=== PATIENT | male | born 1985 | race African-American/Black ===

== ENCOUNTER 2022-05-07 12:49 | Emergency (ER) | payer MEDICARE, OTHER ==
[2022-05-07 12:53] VITALS: TEMP 98.2
[2022-05-07] MEDS ORDERED: ONDANSETRON 4 MG/2 ML VIAL IVP STA (13:15)
[2022-05-07] MEDS ORDERED: HYDROmorphone 0.5 MG/0.5 ML SYRINGE IVP STA ×2 (13:15→16:15)
--- NOTE | 2022-05-07 13:37 | ED ---
Back Pain HPI - General Chief Complaint: Back Pain/Injury Stated Complaint: sickle cell crisis Time Seen by Provider: 05/07/22 13:07 Source: patient, RN notes reviewed Mode of arrival: ambulatory Limitations: no limitations - History of Present Illness Initial Comments: This a 37-year-old male presents emergency Department chief complaint of sickle cell issues. Patient states the lesion was so crisis he states he's been having back pain. Patient states that this is typical for his issues. Patient states he only takes [id number] Tylenol. Patient states he was followed by hematology of [facility]. Patient denies any chest pain or shortness of breath denies any vomiting no dysuria patient denies any trauma no other complaints. - Related Data Home Medications Medication Instructions Recorded Confirmed Amoxicillin 500 mg PO DIRECTED 05/07/22 05/07/22 Ibuprofen [Motrin] 800 mg PO Q8H PRN 05/07/22 05/07/22 Previous Rx's Medication Instructions Recorded HYDROcodone/APAP 10-325MG [[place] 1 tab PO Q6HR PRN 3 Days #12 tab 05/07/22 10-325] HYDROcodone/APAP 10-325MG [[place] 1 tab PO Q6HR PRN 3 Days #12 tab 05/07/22 10-325] Allergies Allergy/AdvReac Type Severity Reaction Status Date / Time No Known Allergies Allergy Verified 05/07/22 16:32 Review of Systems ROS Statement: Those systems with pertinent positive or pertinent negative responses have been documented in the HPI. ROS Other: All systems not noted in ROS Statement are negative. Past Medical History Additional Past Medical History / Comment(s): sickle cell anemia History of Any Multi-Drug Resistant Organisms: None Reported Past Surgical History: Cholecystectomy Additional Past Surgical History / Comment(s): Mediport insertion x 3 Past Anesthesia/Blood Transfusion Reactions: No Reported Reaction Past Psychological History: No Psychological Hx Reported Smoking Status: Current every day smoker Past Alcohol Use History: None Reported Past Drug Use History: Marijuana General Exam Limitations: no limitations General appearance: alert, in no apparent distress Head exam: Present: atraumatic, normocephalic, normal inspection Neck exam: Present: normal inspection. Absent: tenderness, meningismus, lymphadenopathy Respiratory exam: Present: normal lung sounds bilaterally. Absent: respiratory distress, wheezes, rales, rhonchi, stridor Cardiovascular Exam: Present: regular rate, normal rhythm, normal heart sounds. Absent: systolic murmur, diastolic murmur, rubs, gallop, clicks GI/Abdominal exam: Present: soft, normal bowel sounds. Absent: distended, tenderness, guarding, rebound, rigid Extremities exam: Present: normal inspection, full ROM, normal capillary refill. Absent: tenderness, pedal edema, joint swelling, calf tenderness Back exam: Present: full ROM, tenderness, paraspinal tenderness Neurological exam: Present: alert, oriented X3 Skin exam: Present: warm, dry, intact, normal color. Absent: rash Course Vital Signs 05/07/22 05/07/22 12:51 15:35 Temperature 98.2 F Pulse Rate 86 60 Respiratory 16 20 Rate Blood Pressure 132/87 129/86 O2 Sat by Pulse 94 L 99 Oximetry Medical Decision Making - Medical Decision Making 37-year-old male presented return for her sickle cell crisis. Patient went of back pain which is usual symptoms. He does not feel short of breath he has no anterior chest pain. Patient just complains of diffuse back pain. Patient denies nausea vomiting no fevers or chills patient was given analgesics, fluid bolus. Patient follow-up with hematology. - Lab Data Result diagrams: 05/07/22 13:40 05/07/22 13:40 Lab Results 05/07/22 05/07/22 Range/Units 13:40 13:40 WBC 9.3 (3.8-10.6) k/uL RBC 3.12 L (4.30-5.90) m/uL Hgb 8.9 L (13.0-17.5) gm/dL Hct 25.7 L (39.0-53.0) % MCV 82.4 (80.0-100.0) fL MCH 28.4 (25.0-35.0) pg MCHC 34.5 (31.0-37.0) g/dL RDW 19.6 H (11.5-15.5) % Plt Count 341 (150-450) k/uL MPV 9.3 Hypochromasia Moderate Poikilocytosis Marked Anisocytosis Slight Microcytosis Slight Sodium 142 (137-145) mmol/L Potassium 4.8 (3.5-5.1) mmol/L Chloride 111 H (98-107) mmol/L Carbon Dioxide 21 L (22-30) mmol/L Anion Gap 10 mmol/L BUN 8 L (9-20) mg/dL Creatinine 1.10 (0.66-1.25) mg/dL Est GFR (CKD-EPI)AfAm >90 (>60 ml/min/1.73 sqM) Est GFR (CKD-EPI)NonAf 84 (>60 ml/min/1.73 sqM) Glucose 100 H (74-99) mg/dL Calcium 8.7 (8.4-10.2) mg/dL Total Bilirubin 1.1 (0.2-1.3) mg/dL AST 41 (17-59) U/L ALT 16 (4-49) U/L Alkaline Phosphatase 138 H (38-126) U/L Total Protein 7.5 (6.3-8.2) g/dL Albumin 4.3 (3.5-5.0) g/dL Disposition Clinical Impression: Sickle cell anemia Disposition: HOME SELF-CARE Condition: Stable Instructions (If sedation given, give patient instructions): Sickle Cell Crisis (ED) Additional Instructions: Please return to the Emergency Department if symptoms worsen or any other concerns. Prescriptions: HYDROcodone/APAP 10-325MG [[place] 10-325] 1 tab PO Q6HR PRN 3 Days #12 tab PRN Reason: Pain HYDROcodone/APAP 10-325MG [[place] 10-325] 1 tab PO Q6HR PRN 3 Days #12 tab PRN Reason: pain Is patient prescribed a controlled substance at d/c from ED?: Yes When asked, does pt state using other controlled substances?: No If prescribed controlled substance>3 days was MAPS reviewed?: Prescribed <3 Days If opioid is for acute pain is fill amount 7 days or less?: Yes If Rx opioid, was Start Talking consent form obtained?: Yes Referrals: None,Stated [Primary Care Provider] - 1-2 days [place] Howell MD [STAFF PHYSICIAN] - 1-2 days Time of Disposition: 16:41
[2022-05-07 14:30] LABS: ALT 16 U/L (4-49); AST 41 U/L (17-59); African American GFR (CKD) >90 (>60 ml/min/1.73 sqM); Albumin 4.3 g/dL (3.5-5.0); Alkaline Phosphatase 138 U/L (38-126); Anion Gap 10 mmol/L; Blood Urea Nitrogen 8 mg/dL (9-20); Calcium 8.7 mg/dL (8.4-10.2); Carbon Dioxide 21 mmol/L (22-30); Chloride 111 mmol/L (98-107); Glucose 100 mg/dL (74-99); Non-African American GFR(CKD) 84 (>60 ml/min/1.73 sqM); Potassium 4.8 mmol/L (3.5-5.1); Sodium 142 mmol/L (137-145); Total Bilirubin 1.1 mg/dL (0.2-1.3); Total Protein 7.5 g/dL (6.3-8.2)
--- NOTE | 2022-05-07 14:58 | XR ---
EXAMINATION TYPE: XR chest 2V DATE OF EXAM: 05/07/2022 2:40 PM COMPARISON: Chest radiographs from 08/27/2011. TECHNIQUE: XR chest 2V Frontal and lateral views of the chest. CLINICAL INDICATION:Male, 37 years old with history of pain; FINDINGS: Lungs/Pleura: There is no evidence of pleural effusion, focal consolidation, or pneumothorax. Promin ent interstitial lung markings. Heart/mediastinum: Cardiomediastinal silhouette is unremarkable. Musculoskeletal: No acute osseous pathology. Heterogenous sclerotic appearance of both humeral heads. H shaped vertebral bodies consistent with known sickle cell disease. Other findings: Postsurgical changes of the left anterior chest with surgical clips and coiling. Vasc ular stent overlies the left upper chest. Right chest wall Mediport catheter terminates at the superi or cavoatrial junction. IMPRESSION: 1. Prominent interstitial lung markings. No focal consolidation. This can be seen with interstitial edema versus atypical pneumonia. 2. Sclerotic appearance of both humeral heads likely related to osteonecrosis in a patient with know n sickle cell.
[2022-05-07] MEDS ORDERED: HYDROmorphone 1 MG/ML 1 ML SYRINGE IVP STA (15:27)
[2022-05-07 15:49] LABS: Anisocytosis Slight; HCT 25.7 % (39.0-53.0); HGB 8.9 gm/dL (13.0-17.5); Hypochromasia Moderate; MCH 28.4 pg (25.0-35.0); MCHC 34.5 g/dL (31.0-37.0); MCV 82.4 fL (80.0-100.0); Mean Platelet Volume 9.3; Microcytosis Slight; Platelet Count 341 k/uL (150-450); Poikilocytosis Marked; RBC 3.12 m/uL (4.30-5.90); RDW 19.6 % (11.5-15.5)
[2022-05-07 15:50] LABS: Reticulocyte % 10.4 % (0.5-2.0)
[2022-05-07] MEDS ORDERED: SODIUM CHLORIDE 0.9% 1,000 ML IV ONE (16:15)
[2022-05-07 16:48] LABS: Anisocytosis (M) Present; Band Neutrophils % 2 %; Eosinophils # (M) 0.08 k/uL (0-0.7); Monocytes # (M) 0.68 k/uL (0-1.0); Neutrophils % (M) 58 %; Nucleated Red Blood Cells 24 /100 WBC (0-0); Total Cells Counted 200; WBC 7.5 k/uL (3.8-10.6)
[2022-05-07 16:49] LABS: Hypochromasia (M) Present; Ovalocytes Present; Poikilocytosis (M) Present; Polychromasia Present; Target Cells Present; Tear Drop Cells Present
[2022-05-07 16:51] LABS: Sickle Cells Present
[2022-05-07 19:21] VITALS: BP 138/90; PULSE 63; RESP 16
== END 2022-05-07 17:50 | disposition home or self-care (01) ==
LOC: EC 12:49
DX: D57.1 Sickle-cell disease without crisis (principal); F17.200 Nicotine dependence, unspecified, uncomplicated; F19.20 Other psychoactive substance dependence, uncomplicated
CPT/HCPCS: 99283; 96374; 96375 ×4; 96361; 36415; 80053; 85025; 85045; 71046; J2405; J1170 ×2; J1642

== ENCOUNTER 2024-04-13 08:15 | Inpatient (IN) | payer MEDICARE, OTHER ==
[2024-04-13] MEDS: HYDROmorphone 1 MG/ML 1 ML SYRINGE IVP STA ×2 (09:23→10:09)
[2024-04-13 09:31] LABS: Anisocytosis Slight; HCT 28.8 % (39.0-53.0); HGB 9.4 gm/dL (13.0-17.5); Hypochromasia Slight; MCH 28.5 pg (25.0-35.0); MCHC 32.7 g/dL (31.0-37.0); MCV 87.1 fL (80.0-100.0); Mean Platelet Volume 8.1; Platelet Count 349 k/uL (150-450); Poikilocytosis Marked; RBC 3.31 m/uL (4.30-5.90); RDW 19.3 % (11.5-15.5); Reticulocyte % 10.5 % (0.5-2.0)
[2024-04-13 09:44] LABS: ALT 23 U/L (4-49); AST 40 U/L (17-59); African American GFR (CKD) >90 (>60 ml/min/1.73 sqM); Alkaline Phosphatase 146 U/L (38-126); Anion Gap 6 mmol/L; Blood Urea Nitrogen 12 mg/dL (9-20); Calcium 8.6 mg/dL (8.4-10.2); Carbon Dioxide 24 mmol/L (22-30); Chloride 112 mmol/L (98-107); Glucose 113 mg/dL (74-99); Non-African American GFR(CKD) 81 (>60 ml/min/1.73 sqM); Potassium 4.1 mmol/L (3.5-5.1); Sodium 142 mmol/L (137-145); Total Bilirubin 1.4 mg/dL (0.2-1.3)
--- NOTE | 2024-04-13 09:56 | XR ---
EXAMINATION TYPE: XR chest 2V DATE OF EXAM: 04/13/2024 COMPARISON: NONE HISTORY: Chest pain TECHNIQUE: Frontal and lateral views of the chest are obtained. FINDINGS: There is no focal air space opacity. Postoperative changes left upper lobe. MediPort catheter in plac e. No evidence for pneumothorax. No pleural effusion. The cardiac silhouette size is within normal limits. The osseous structures are grossly intact. Proximal humeral bone infarcts and/or osteonecrosis noted. IMPRESSION: 1. No acute cardiopulmonary process. [facility], , 04/13/2024 9:54 AM
--- NOTE | 2024-04-13 10:02 | ED ---
General Adult HPI - General Chief complaint: Recheck/Abnormal Lab/Rx Stated complaint: Sickle cell issue Time Seen by Provider: 04/13/24 08:36 Source: patient, RN notes reviewed Mode of arrival: ambulatory Limitations: no limitations - History of Present Illness Initial comments: 39-year-old male presents emergency department chief complaint of chest and leg pain. Patient states he has a history of sickle cell. Patient states he has sickle cell crisis. Patient states has not had any issues in a few years he is usually hospitalized for this reason he does not see a current hematology. Patient states pain is uncontrolled he does have an noted chest port he states he has shortness of breath related to his pain denies any fevers no headache or dizziness no syncopal episodes - Related Data Home Medications Medication Instructions Recorded Confirmed No Known Home Medications 04/13/24 04/13/24 Allergies Allergy/AdvReac Type Severity Reaction Status Date / Time No Known Allergies Allergy Verified 04/13/24 10:24 Review of Systems ROS Statement: Those systems with pertinent positive or pertinent negative responses have been documented in the HPI. ROS Other: All systems not noted in ROS Statement are negative. Past Medical History Additional Past Medical History / Comment(s): sickle cell anemia History of Any Multi-Drug Resistant Organisms: None Reported Past Surgical History: Cholecystectomy Additional Past Surgical History / Comment(s): Mediport insertion x 3 Past Anesthesia/Blood Transfusion Reactions: No Reported Reaction Past Psychological History: No Psychological Hx Reported Smoking Status: Current every day smoker Past Alcohol Use History: None Reported Past Drug Use History: Marijuana General Exam Limitations: no limitations General appearance: alert, in no apparent distress Head exam: Present: atraumatic, normocephalic, normal inspection Eye exam: Present: normal appearance, PERRL, EOMI. Absent: scleral icterus, conjunctival injection, periorbital swelling Neck exam: Present: normal inspection, full ROM. Absent: tenderness, meningismus, lymphadenopathy Respiratory exam: Present: normal lung sounds bilaterally. Absent: respiratory distress, wheezes, rales, rhonchi, stridor Cardiovascular Exam: Present: regular rate, normal rhythm, normal heart sounds. Absent: systolic murmur, diastolic murmur, rubs, gallop, clicks GI/Abdominal exam: Present: soft, normal bowel sounds. Absent: distended, tenderness, guarding, rebound, rigid Course Vital Signs 04/13/24 04/13/24 08:16 10:00 Temperature 98 F Pulse Rate 74 51 L Respiratory 18 18 Rate Blood Pressure 155/78 131/79 O2 Sat by Pulse 98 96 Oximetry EKG Findings - EKG Comments: EKG Findings:: EKG performed at 9: 32 sinus bradycardia rate of 55 RI 137 QRS 90 QT/QTc 433/421 - EKG Results: EKG: interpreted by GREYSON Medical Decision Making - Medical Decision Making Was pt. sent in by a medical professional or institution ([facility] Sandoval, [facility], urgent care, hospital, or [facility]...) When possible be specific @ -No Did you speak to anyone other than the patient for history (EMS, parent, family, police, friend...)? What history was obtained from this source @ -No Did you review nursing and triage notes (agree or disagree)? Why? @ -I reviewed and agree with nursing and triage notes Were old charts reviewed (outside hosp., previous admission, EMS record, old EKG, old radiological studies, urgent care reports/EKG's, [facility] records)? Report findings @ -No old charts were reviewed Differential Diagnosis (chest pain, altered mental status, abdominal pain women, abdominal pain men, vaginal bleeding, weakness, fever, dyspnea, syncope, headache, dizziness, GI bleed, back pain, seizure, CVA, palpatations, mental health, musculoskeletal)? @ -Differential Chest Pain: Stable Angina, Unstable Angina, STEMI, NSTEMI Aortic Dissection, Pneumothorax, Musculoskeletal, Esophageal Spasm GERD, Cholecystitis, Pancreatitis, Zoster, this is not meant to be an all-inclusive list. EKG interpreted by me (3pts min.). @ -As above X-rays interpreted by me (1pt min.). @ -Chest x-ray shows no acute cardiopulmonary process CT interpreted by me (1pt min.). @ -None done U/S interpreted by me (1pt. min.). @ -None done What testing was considered but not performed or refused? (CT, X-rays, U/S, labs)? Why? @ -None What meds were considered but not given or refused? Why? @ -None Did you discuss the management of the patient with other professionals (professionals i.e. [facility] Sandoval, [facility] [facility], lab, RT, psych nurse, social worker health services, picker and packer, teacher, aircraft electronics technical officer, behavioral health case manager)? Give summary @ -Dr. Tamayo for admission Was smoking cessation discussed for >3mins.? @ -No Was critical care preformed (if so, how long)? @ -No Were there social determinants of health that impacted care today? How? (Homelessness, low income, unemployed, alcoholism, drug addiction, transportation, low edu. Level, literacy, decrease access to med. care, halfway, rehab)? @ -No Was there de-escalation of care discussed even if they declined (Discuss DNR or withdrawal of care, Hospice)? DNR status @ -No What co-morbidities impacted this encounter? (DM, HTN, Smoking, COPD, CAD, Cancer, CVA, ARF, Chemo, Hep., AIDS, mental health diagnosis, sleep apnea, morbid obesity)? @ -Sickle cell Was patient admitted / discharged? Hospital course, mention meds given and route, prescriptions, significant lab abnormalities, going to OR and other pertinent info. @ -Admitted patient presented for sickle cell crisis, reticulocyte count is 10.5. Patient is having persistent pain. Patient x-ray is clear was started on IV fluids, analgesics Undiagnosed new problem with uncertain prognosis? @ -No Drug Therapy requiring intensive monitoring for toxicity (Heparin, Nitro, Insulin, Cardizem)? @ -No Were any procedures done? @ -No Diagnosis/symptom? @ -Sickle cell crisis Acute, or Chronic, or Acute on Chronic? @ -Acute Uncomplicated (without systemic symptoms) or Complicated (systemic symptoms)? @ -Complicated Side effects of treatment? @ -No Exacerbation, Progression, or Severe Exacerbation? @ -No Poses a threat to life or bodily function? How? (Chest pain, [place], [place], pneumonia, PE, COPD, DKA, ARF, appy, cholecystitis, CVA, Diverticulitis, Homicidal, Suicidal, threat to staff... and all critical care pts) @ -No - Lab Data Result diagrams: 04/13/24 09:19 04/13/24 09:19 Lab Results 04/13/24 04/13/24 Range/Units 09:19 09:19 WBC 11.9 H (3.8-10.6) k/uL RBC 3.31 L (4.30-5.90) m/uL Hgb 9.4 L (13.0-17.5) gm/dL Hct 28.8 L (39.0-53.0) % MCV 87.1 (80.0-100.0) fL MCH 28.5 (25.0-35.0) pg MCHC 32.7 (31.0-37.0) g/dL RDW 19.3 H (11.5-15.5) % Plt Count 349 (150-450) k/uL MPV 8.1 Neutrophils % (Manual) 67 % Band Neuts % (Manual) 1 % Lymphocytes % (Manual) 22 % Monocytes % (Manual) 8 % Eosinophils % (Manual) 2 % Basophils % (Manual) 1 % Metamyelocytes % 1 % Neutrophils # (Manual) 8.00 H (1.3-7.7) k/uL Lymphocytes # (Manual) 2.62 (1.0-4.8) k/uL Monocytes # (Manual) 0.95 (0-1.0) k/uL Eosinophils # (Manual) 0.24 (0-0.7) k/uL Basophils # (Manual) 0.12 (0-0.2) k/uL Metamyelocytes # (Man) 0.12 H (0) k/uL Nucleated RBCs 3 H (0-0) /100 WBC Manual Slide Review Performed Polychromasia Present Hypochromasia Slight Poikilocytosis Marked Anisocytosis Slight Sickle Cells Present Target Cells Present [place] Bodies Present Retic Count 10.5 H (0.5-2.0) % Sodium 142 (137-145) mmol/L Potassium 4.1 (3.5-5.1) mmol/L Chloride 112 H (98-107) mmol/L Carbon Dioxide 24 (22-30) mmol/L Anion Gap 6 mmol/L BUN 12 (9-20) mg/dL Creatinine 1.13 (0.66-1.25) mg/dL Est GFR (CKD-EPI)AfAm >90 (>60 ml/min/1.73 sqM) Est GFR (CKD-EPI)NonAf 81 (>60 ml/min/1.73 sqM) Glucose 113 H (74-99) mg/dL Calcium 8.6 (8.4-10.2) mg/dL Total Bilirubin 1.4 H (0.2-1.3) mg/dL AST 40 (17-59) U/L ALT 23 (4-49) U/L Alkaline Phosphatase 146 H (38-126) U/L Total Protein 7.0 (6.3-8.2) g/dL Albumin 4.0 (3.5-5.0) g/dL Disposition Clinical Impression: Sickle cell crisis Disposition: ADMITTED IP TO THIS HOSP Condition: Fair Referrals: None,Stated [Primary Care Provider] - 1-2 days Time of Disposition: 11:05
[2024-04-13 10:05] LABS: Band Neutrophils % 1 %; Basophils # (M) 0.12 k/uL (0-0.2); Eosinophils # (M) 0.24 k/uL (0-0.7); Lymphocytes # (M) 2.62 k/uL (1.0-4.8); Metamyelocytes # (M) 0.12 k/uL (0); Metamyelocytes % 1 %; Monocytes # (M) 0.95 k/uL (0-1.0); Neutrophils % (M) 67 %; Nucleated Red Blood Cells 3 /100 WBC (0-0); Total Cells Counted 200; WBC 11.9 k/uL (3.8-10.6)
[2024-04-13 10:06] LABS: Polychromasia Present; Sickle Cells Present; Target Cells Present
[2024-04-13 10:07] LABS: Howell-Jolly Bodies Present
[2024-04-13] MEDS: SODIUM CHLORIDE 0.9% 500 ML 500 ML IV ONE (10:16)
[2024-04-13] MEDS ORDERED: NALOXONE 0.4 MG/ML 1 ML VIAL IV PRN (11:05)
[2024-04-13] MEDS ORDERED: ONDANSETRON 4 MG/2 ML VIAL IVP PRN (11:05)
[2024-04-13] MEDS: SODIUM CHLORIDE 0.9% 1,000 ML IV SCH (11:25)
[2024-04-13] MEDS: HYDROmorphone 1 MG/ML 1 ML SYRINGE IVP PRN (11:25)
--- NOTE | 2024-04-13 13:47 | P.HPIM ---
History of Present Illness H&P Date: 04/13/24 History of present illness; Shane Thomas is a 39-year-old male with sickle cell disease, who presents with pain crisis. Patient symptoms began this morning, with pain is constant in nature and located primarily in diffusely through back, shoulders, and thighs. He states he has pain throughout his body. He reports having a cold 1 week ago, with no other known triggers. He has had multiple pain crisis in the past. He has urinated since arriving to ER today. Currently he denies fever, chills, chest pain, shortness of breath, cough, nausea, vomiting, abdominal pain. Initial lab work done in the ER showed WBC 11.9, hemoglobin 9.4, MCV 87, slide with sickle cells, target cells, [place] bodies, reticulocyte count 10.5, sodium 142, potassium 4.1, chloride 112, BUN 12, creatinine 13, glucose 113, bilirubin 1.4, ALP 146, lactate dehydrogenase 725, respiratory viral panel negative EKG done in the ER independently interpreted showed heart rate of 55, no ST segment elevation or depression seen, no T-wave inversions seen. Chest x-ray done independently interpreted in the ER showed no acute cardiopulmonary process. Patient admitted to internal medicine service for treatment of sickle cell pain crisis. REVIEW OF SYSTEMS: All Systems reviewed, pertinent positives and negatives noted in HPI. All other symptoms are negative. The rest of the 14-point review of systems is negative. PHYSICAL EXAMINATION: GENERAL: The patient is alert and oriented x3, moderate acute distress. Well developed, well nourished. HEENT: Pupils are round and equally reacting to light. EOMI. No scleral icterus. No conjunctival pallor. Normocephalic, atraumatic. No pharyngeal erythema. No thyromegaly. CARDIOVASCULAR: S1 and S2 present. No murmurs, rubs, or gallops. PULMONARY: Chest is clear to auscultation, no wheezing or crackles. ABDOMEN: Soft, nontender, nondistended, normoactive bowel sounds. No palpable organomegaly. MUSCULOSKELETAL: No apparent joint swelling and deformities. EXTREMITIES: No apparent cyanosis, clubbing, or pedal edema. NEUROLOGICAL: Gross neurological examination did not reveal any focal deficits. SKIN: No apparent rashes. Labs reviewed Imaging reviewed Assessment and plan Shane Thomas is a 39-year-old male with sickle cell disease, who presents with pain crisis. # Acute vaso-occlusive sickle cell crisis Given 500 mL NS bolus in ER Continue IV normal saline 100 cc/h Continue pain management with IV Dilaudid 0.5 mg every 3 hours as needed, 1 mg IV every 3 hours as needed, oral [place] 5 every 4 hours as needed, monitor for sedation Order haptoglobin, LDH Ordered type and screen Monitor CBC #Leukocytosis May be secondary to stress response versus underlying infection Initial WBC 11.9 Order blood culture Monitor CBC as above #Acute urinary retention Bladder scan revealed 600 mL Plan to straight cath Continue IV fluids as above F: IV Normal saline 100cc/hr E: Replete as needed N: Regular diet E: None DVT ppx: Subq Lovenox Code status: Full code Anticipated discharge place: Pending clinical course Anticipated discharge time: Pending clinical course Monitor vital signs, CBC, CMP Continue telemetry monitoring Continue with symptomatic treatment. Resume home medication. GI prophylaxis as needed. Further recommendations as per clinical course of the patient Dictation was produced using [employer] dictation software. Please excuse any grammatical, word or spelling errors. The patient is admitted with an anticipated greater than 2 midnight stay as inpatient status for evaluation of sickle cell crisis. A total of 55 minutes was spent on the care of this complex patient more than 50% of the time was spent in counseling and care coordination. I have seen and evaluated the patient today. Discussed with the resident and agree with the residents finding and plan as documented in the resident's note. Changes highlighted in blue font. Past Medical History Additional Past Medical History / Comment(s): sickle cell anemia History of Any Multi-Drug Resistant Organisms: None Reported Past Surgical History: Cholecystectomy Additional Past Surgical History / Comment(s): Mediport insertion x 3 Past Anesthesia/Blood Transfusion Reactions: No Reported Reaction Past Psychological History: No Psychological Hx Reported Smoking Status: Current every day smoker Past Alcohol Use History: None Reported Past Drug Use History: Marijuana Medications and Allergies Home Medications Medication Instructions Recorded Confirmed Type No Known Home Medications 04/13/24 04/13/24 History Allergies Allergy/AdvReac Type Severity Reaction Status Date / Time No Known Allergies Allergy Verified 04/13/24 10:24 Physical Exam Vitals: Vital Signs Temp Pulse Resp BP Pulse Ox 04/13/24 11:46 59 L 18 132/75 97 04/13/24 10:00 51 L 18 131/79 96 04/13/24 08:16 98 F 74 18 155/78 98 Intake and Output 04/12/24 04/13/24 04/13/24 22:59 06:59 14:59 Other: Weight 70.307 kg Results CBC & Chem 7: 04/13/24 09:19 04/13/24 09:19 Labs: Abnormal Lab Results - Last 24 Hours (Table) 04/13/24 04/13/24 04/13/24 Range/Units 09:19 09:19 12:04 WBC 11.9 H (3.8-10.6) k/uL RBC 3.31 L (4.30-5.90) m/uL Hgb 9.4 L (13.0-17.5) gm/dL Hct 28.8 L (39.0-53.0) % RDW 19.3 H (11.5-15.5) % Neutrophils # (Manual) 8.00 H (1.3-7.7) k/uL Metamyelocytes # (Man) 0.12 H (0) k/uL Nucleated RBCs 3 H (0-0) /100 WBC Retic Count 10.5 H (0.5-2.0) % Chloride 112 H (98-107) mmol/L Glucose 113 H (74-99) mg/dL Total Bilirubin 1.4 H (0.2-1.3) mg/dL Alkaline Phosphatase 146 H (38-126) U/L Lactate Dehydrogenase 725 H (120-246) U/L
[2024-04-13] MEDS: HYDROmorphone 0.5 MG/0.5 ML SYRINGE IVP PRN (14:00)
[2024-04-13] MEDS: HYDROcodone/APAP 5-325MG 1 EACH TAB PO PRN (15:32)
[2024-04-14 08:27] LABS: Anisocytosis Slight; Basophils # (A) 0.1 k/uL (0-0.2); Basophils % (A) 1 %; Eosinophils # (A) 0.1 k/uL (0-0.7); Eosinophils % (A) 1 %; HCT 23.5 % (39.0-53.0); Hypochromasia Moderate; Lymphocytes # (A) 2.7 k/uL (1.0-4.8); Lymphocytes % (A) 17 %; MCH 28.6 pg (25.0-35.0); MCHC 32.6 g/dL (31.0-37.0); MCV 87.5 fL (80.0-100.0); Mean Platelet Volume 9.5; Monocytes # (A) 0.7 k/uL (0-1.0); Monocytes % (A) 5 %; Neutrophils # (A) 12.1 k/uL (1.3-7.7); Platelet Count 197 k/uL (150-450); Poikilocytosis Marked; RBC 2.68 m/uL (4.30-5.90); RDW 19.9 % (11.5-15.5); Reticulocyte % 10.1 % (0.5-2.0)
[2024-04-14 08:51] LABS: HGB 7.7 gm/dL (13.0-17.5)
[2024-04-14 09:01] LABS: Band Neutrophils % 1 %; Lymphocytes # (M) 2.09 k/uL (1.0-4.8); Metamyelocytes # (M) 0.12 k/uL (0); Metamyelocytes % 1 %; Monocytes # (M) 0.98 k/uL (0-1.0); Myelocytes # (M) 0.12 k/uL (0); Myelocytes % 1 %; Neutrophils % (M) 74 %; Nucleated Red Blood Cells 30 /100 WBC (0-0); Polychromasia Present; Sickle Cells Present; Total Cells Counted 200; WBC 12.3 k/uL (3.8-10.6)
[2024-04-14 09:02] LABS: Anisocytosis (M) Present; Target Cells Present
[2024-04-14 09:04] LABS: Howell-Jolly Bodies Present
[2024-04-14] MEDS: SODIUM CHLORIDE 0.9% 500 ML 500 ML IV ONE (11:06)
[2024-04-14] MEDS ORDERED: NALOXONE 0.4 MG/ML 1 ML VIAL IV PRN (11:20)
[2024-04-14 11:34] LABS: Blood Urea Nitrogen 13.8 mg/dL (9.0-27.0); Carbon Dioxide 20.6 mmol/L (21.6-31.8); Chloride 108 mmol/L (96-109); Glucose 117 mg/dL (70-110); Potassium 4.6 mmol/L (3.5-5.5); Sodium 141 mmol/L (135-145)
[2024-04-14 11:35] LABS: ALT 75 U/L (10-49); AST 181 U/L (14-35); Albumin 4.1 g/dL (3.8-4.9); Albumin/Globulin Ratio 1.52 Ratio (1.60-3.17); Alkaline Phosphatase 235 U/L (41-126); Calcium 8.4 mg/dL (8.7-10.3); Globulin 2.7 g/dL (1.6-3.3); Total Bilirubin 1.3 mg/dL (0.3-1.2); Total Protein 6.8 g/dL (6.2-8.2)
[2024-04-14 11:52] LABS: LDH 1289 U/L (120-246)
[2024-04-14] MEDS: SENNOSIDES 8.6 MG TAB PO SCH (11:57)
[2024-04-14] MEDS: HYDROmorphone PCA 10 MG/50 ML BAG IV PRN (13:26)
[2024-04-14 14:32] LABS: Appearance,Urine Clear (Clear); Bilirubin,Urine Negative (Negative); Blood,Urine Moderate (Negative); Color,Urine Colorless; Glucose,Urine (UA) Negative (Negative); Ketones,Urine Negative (Negative); Leukocyte Esterase,Urine Negative (Negative); Mucus,Urine Rare /hpf; Nitrite,Urine Negative (Negative); PH, Urine 5.5 (5.0-8.0); Protein,Urine Trace (Negative); RBC,Urine <1 /hpf (0-5); Specific Gravity,Urine 1.012 (1.001-1.035); Urobilinogen,Urine <2.0 mg/dL (<2.0); WBC,Urine <1 /hpf (0-5)
--- NOTE | 2024-04-14 15:39 | P.PN ---
Subjective Progress Note Date: 04/14/24 History of present illness; Shane Thomas is a 39-year-old male with sickle cell disease, who presents with pain crisis. Patient symptoms began this morning, with pain is constant in nature and located primarily in diffusely through back, shoulders, and thighs. He states he has pain throughout his body. He reports having a cold 1 week ago, with no other known triggers. He has had multiple pain crisis in the past. He has urinated since arriving to ER today. Currently he denies fever, chills, chest pain, shortness of breath, cough, nausea, vomiting, abdominal pain. Initial lab work done in the ER showed WBC 11.9, hemoglobin 9.4, MCV 87, slide with sickle cells, target cells, [place] bodies, reticulocyte count 10.5, sodium 142, potassium 4.1, chloride 112, BUN 12, creatinine 13, glucose 113, bilirubin 1.4, ALP 146, lactate dehydrogenase 725, respiratory viral panel negative. EKG done in the ER independently interpreted showed heart rate of 55, no ST segment elevation or depression seen, no T-wave inversions seen. Chest x-ray done independently interpreted in the ER showed no acute cardiopulmonary process. Progress note 4patient seen and examined at bedside. Patient continues to have throughout his body, not worse in any one area. Patient continues to get combination of Dilaudid and [place]. Patient with no known urine output today. No further complaints. REVIEW OF SYSTEMS: All Systems reviewed, pertinent positives and negatives noted in HPI. All other symptoms are negative. The rest of the 14-point review of systems is negative. PHYSICAL EXAMINATION: Vitals reviewed GENERAL: The patient is alert and oriented x3, moderate acute distress. Well developed, well nourished. HEENT: Pupils are round and equally reacting to light. EOMI. No scleral icterus. No conjunctival pallor. Normocephalic, atraumatic. No pharyngeal erythema. No thyromegaly. CARDIOVASCULAR: S1 and S2 present. No murmurs, rubs, or gallops. PULMONARY: Chest is clear to auscultation, no wheezing or crackles. ABDOMEN: Soft, nontender, nondistended, normoactive bowel sounds. No palpable organomegaly. MUSCULOSKELETAL: No apparent joint swelling and deformities. EXTREMITIES: No apparent cyanosis, clubbing, or pedal edema. NEUROLOGICAL: Gross neurological examination did not reveal any focal deficits. SKIN: No apparent rashes. Labs reviewed today WBC 12.3, hemoglobin 7.7, platelets 197, reticulocyte count 10.1, sodium 141, potassium 4.6, chloride 108, BUN 13.8, creatinine 1.0, glucose 117, total bili 1.3, AST 181, ALT 75, ALP 235, lactate dehydrogenase 1289, UA with findings of trace protein and moderate blood. Imaging reviewednone today Assessment and plan Shane Thomas is a 39-year-old male with sickle cell disease, who presents with pain crisis. 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 Began senna 8.6 mg twice daily Haptoglobin < 10.0, LDH 1289 Completed type and screen Blood transfusion ordered Monitor CBC -Order ferritin level tomorrow morning, if very elevated will consider hematology consult for exchange transfusion #Leukocytosis May be secondary to stress response versus underlying infection Initial WBC 11.9 => 12.3 Awaiting blood culture Monitor CBC as above #Acute urinary retention Bladder scan revealed 600 mL Patient later able to initiate urination UA no apparent UTI Continue to monitor Continue IV fluids as above F: IV Normal saline 100cc/hr E: Replete as needed N: Regular diet E: None DVT ppx: Subq Lovenox Code status: Full code Anticipated discharge place: Pending clinical course Anticipated discharge time: Pending clinical course Monitor vital signs, CBC, CMP Continue telemetry monitoring Continue with symptomatic treatment. Resume home medication. GI prophylaxis as needed. Further recommendations as per clinical course of the patient Dictation was produced using [employer] dictation software. Please excuse any grammatical, word or spelling errors. I have seen and evaluated the patient today. Discussed with the resident and agree with the residents finding and plan as documented in the resident's note. Changes highlighted in blue font. Objective - Vital Signs Vital signs: Vital Signs Temp 98.3 F 04/14/24 13:29 Pulse 91 04/14/24 13:29 Resp 16 04/14/24 13:29 BP 123/68 04/14/24 13:29 Pulse Ox 97 04/14/24 13:29 FiO2 Intake & Output 04/13/24 04/14/24 04/14/24 18:59 06:59 18:59 Intake Total 480 118 Output Total 325 Balance 155 118 Weight 70.307 kg Intake: Oral 480 118 Output: Urine 325 Other: Voiding Method Urinal # Voids 2 300 - Labs CBC & Chem 7: 04/14/24 07:00 04/14/24 07:00 Labs: Abnormal Lab Results - Last 24 Hours (Table) 04/13/24 04/14/24 04/14/24 Range/Units 12:04 07:00 07:00 WBC 12.3 H (3.8-10.6) k/uL RBC 2.68 L (4.30-5.90) m/uL Hgb 7.7 L D (13.0-17.5) gm/dL Hct 23.5 L (39.0-53.0) % RDW 19.9 H (11.5-15.5) % Neutrophils # 12.1 H (1.3-7.7) k/uL Neutrophils # (Manual) 9.20 H (1.3-7.7) k/uL Metamyelocytes # (Man) 0.12 H (0) k/uL Myelocytes # (Manual) 0.12 H (0) k/uL Nucleated RBCs 30 H (0-0) /100 WBC Retic Count 10.1 H (0.5-2.0) % Haptoglobin <10.0 L (31.2-198.0) mg/dL Carbon Dioxide 20.6 L (21.6-31.8) mmol/L Anion Gap 12.40 H (4.00-12.00) mmol/L Glucose 117 H (70-110) mg/dL Calcium 8.4 L (8.7-10.3) mg/dL Total Bilirubin 1.3 H (0.3-1.2) mg/dL AST 181 H (14-35) U/L ALT 75 H (10-49) U/L Alkaline Phosphatase 235 H (41-126) U/L Lactate Dehydrogenase 1289 H (120-246) U/L Albumin/Globulin Ratio 1.52 L (1.60-3.17) Ratio Urine Protein (Negative) Urine Blood (Negative) Urine Mucus (None) /hpf 04/14/24 Range/Units 10:14 WBC (3.8-10.6) k/uL RBC (4.30-5.90) m/uL Hgb (13.0-17.5) gm/dL Hct (39.0-53.0) % RDW (11.5-15.5) % Neutrophils # (1.3-7.7) k/uL Neutrophils # (Manual) (1.3-7.7) k/uL Metamyelocytes # (Man) (0) k/uL Myelocytes # (Manual) (0) k/uL Nucleated RBCs (0-0) /100 WBC Retic Count (0.5-2.0) % Haptoglobin (31.2-198.0) mg/dL Carbon Dioxide (21.6-31.8) mmol/L Anion Gap (4.00-12.00) mmol/L Glucose (70-110) mg/dL Calcium (8.7-10.3) mg/dL Total Bilirubin (0.3-1.2) mg/dL AST (14-35) U/L ALT (10-49) U/L Alkaline Phosphatase (41-126) U/L Lactate Dehydrogenase (120-246) U/L Albumin/Globulin Ratio (1.60-3.17) Ratio Urine Protein Trace H (Negative) Urine Blood Moderate H (Negative) Urine Mucus Rare H (None) /hpf
--- NOTE | 2024-04-14 20:49 | US ---
EXAMINATION TYPE: US abdomen complete DATE OF EXAM: 04/14/2024 COMPARISON: NONE CLINICAL INDICATION: Male, 39 years old with history of splenomegaly, SC crisis; sickle cell crisis TECHNIQUE: Grayscale and color Doppler imaging of the abdomen was performed. FINDINGS: EXAM MEASUREMENTS: Liver Length: 17.8 cm Gallbladder Wall: unable to evaluate CBD: unable to evaluate cm Spleen: obscured by bowel, unable to evaluate Right Kidney: 10.7x4.2 cm Left Kidney: 11.3x5.4 cm SECURITIES ATTORNEY NOTES: Pancreas: Tail obscured by overlying bowel gas Liver: wnl as best visualized, enlarged Gallbladder: unable to evaluate Evidence for sonographic Cazares's sign: No CBD: unable to evaluate Spleen: unable to evaluate Right Kidney: wnl as best visualized Left Kidney: wnl as best visualized Upper IVC: wnl Abd Aorta: unable to evaluate patient in active sickle cell crisis, unable to tolerate exam, hold deep withheld inspiration, or economic development coordinator perate with proper positioning for exam making the ultrasound largely non-diagnostic The liver is homogenous. The intrahepatic portion of the IVC is within normal limits. The visualized portions of the pancreas are homogenous. IMPRESSION: 1. Abdomen ultrasound exam is essentially nondiagnostic. 2. Hepatomegaly [facility], Workstation: [facility], 04/14/2024 8:47 PM
[2024-04-14] MEDS: ACETAMINOPHEN TAB 325 MG TAB PO PRN (21:11)
[2024-04-14 23:34] LABS: Glucose,Whole Blood 93 mg/dL (70-110)
[2024-04-14] MEDS: DEXTROSE 5%-0.45% NACL 1,000 ML IV SCH (23:53)
[2024-04-15 00:37] LABS: Lactic Acid, Venous 3.1 mmol/L (0.7-2.0)
[2024-04-15] MEDS: HYDROmorphone 1 MG/ML 1 ML SYRINGE IVP PRN (01:56)
--- NOTE | 2024-04-15 02:35 | P.PN ---
Progress Note - Text Progress Note Date: 04/15/24 notified by RN to evaluate patient with AMS patient reports poor control of his pain , sickle cell crises. it appears he is not using his COIL MAKER pump as ordered and fails to do so despite explaining multiple times by nursing staff. patient is responsive alert, oriented to place, person , time and situation. ammonia level unremarkable oxygen sat >95% on supplemental oxygen NC 2-4 L EKG showed sinus tachycardia optimize pain control , DC COIL MAKER pump due failure to use. switch to Dilaudid 1 mg IVP q3 hr PRN pain switch fluids to hypotonic solution , with D5 0.45 NS at 130 cc per hour , DC 0.9 NS to avoid increasing blood viscosity continue to monitor lactic acid hold blood transfusion , again to avoid increasing blood viscosity and worsening sickle cell pain crisis
--- NOTE | 2024-04-15 08:46 | XR ---
EXAMINATION TYPE: XR chest 1V DATE OF EXAM: 04/15/2024 COMPARISON: 04/13/2024 INDICATION: Acute chest syndrome TECHNIQUE: Single frontal view of the chest is obtained. FINDINGS: The heart size is mildly prominent. The pulmonary vasculature is prominent. Mild volume overload may be present. A suspicious focal consolidation is not identified. Some postsur gical changes are present on the left. 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 IMPRESSION: 1. Clinical correlation for volume overload. [facility], Workstation: [facility], 04/15/2024 8:44 AM
[2024-04-15 10:48] LABS: Anisocytosis Moderate; HCT 20.9 % (39.0-53.0); Hypochromasia Marked; MCHC 33.1 g/dL (31.0-37.0); MCV 84.7 fL (80.0-100.0); Mean Platelet Volume 8.8; Microcytosis Slight; Platelet Count 190 k/uL (150-450); Poikilocytosis Marked; RBC 2.46 m/uL (4.30-5.90); RDW 21.6 % (11.5-15.5); Reticulocyte % 10.4 % (0.5-2.0)
[2024-04-15 10:57] LABS: ALT 69 U/L (4-49); AST 264 U/L (17-59); African American GFR (CKD) 77 (>60 ml/min/1.73 sqM); Albumin 4.2 g/dL (3.5-5.0); Albumin/Globulin Ratio 1.4; Alkaline Phosphatase 324 U/L (38-126); Anion Gap 9 mmol/L; Blood Urea Nitrogen 31 mg/dL (9-20); Calcium 8.6 mg/dL (8.4-10.2); Carbon Dioxide 17 mmol/L (22-30); Chloride 114 mmol/L (98-107); Globulin 2.9 g/dL; Glucose 108 mg/dL (74-99); Non-African American GFR(CKD) 67 (>60 ml/min/1.73 sqM); Potassium 4.4 mmol/L (3.5-5.1); Sodium 140 mmol/L (137-145); Total Bilirubin 2.8 mg/dL (0.2-1.3); Total Protein 7.1 g/dL (6.3-8.2)
[2024-04-15 11:04] LABS: HGB 6.9 gm/dL (13.0-17.5)
[2024-04-15] MEDS: HYDROmorphone 2 MG TAB PO PRN (11:12)
[2024-04-15 11:19] LABS: LDH 3559 U/L (120-246)
[2024-04-15 11:26] LABS: Anisocytosis (M) 2+; Basophils # (A) 0.04 X 10*3/uL (0.00-0.10); Basophils % (A) 0.3 %; Eosinophils # (A) 0 X 10*3/uL (0.04-0.35); Eosinophils % (A) 0 %; HCT 18.1 % (39.6-50.0); HGB 6.4 g/dL (13.0-17.0); Howell-Jolly Bodies 2+; Lymphocytes # (A) 3.07 X 10*3/uL (0.90-5.00); Lymphocytes % (A) 21.3 %; MCH 27.6 pg (27.0-32.0); MCHC 35.4 g/dL (32.0-37.0); Mean Platelet Volume 10.2 FL (9.5-12.2); Monocytes # (A) 1.21 X 10*3/uL (0.20-1.00); Monocytes % (A) 8.4 %; NRBC Per 100 WBC 4.65 X 10*3/uL (0.00-0.01); Neutrophils # (A) 9.71 X 10*3/uL (1.80-7.70); Neutrophils % (A) 67.5 %; Platelet Count 158 X 10*3/uL (140-440); RBC 2.32 X 10*6/uL (4.40-5.60); RDW 23.6 % (11.5-14.5); Sickle Cells 3+; Target Cells 2+; WBC 14.39 X 10*3/uL (4.50-10.00)
[2024-04-15 12:32] LABS: Band Neutrophils % 1 %; Metamyelocytes % 1 %; Neutrophils % (M) 65 %; Nucleated Red Blood Cells 24 /100 WBC (0-0); Total Cells Counted 200
[2024-04-15 12:33] LABS: Metamyelocytes # (M) 0.15 k/uL (0); Monocytes # (M) 1.04 k/uL (0-1.0); WBC 14.8 k/uL (3.8-10.6)
[2024-04-15 12:35] LABS: Polychromasia Present; Sickle Cells Present; Target Cells Present
[2024-04-15 12:36] LABS: Howell-Jolly Bodies Present
[2024-04-15 13:07] LABS: ALT 72 U/L (10-49); AST 311 U/L (14-35); Albumin/Globulin Ratio 1.43 Ratio (1.60-3.17); Alkaline Phosphatase 362 U/L (41-126); BUN/Creat Ratio 20.31 Ratio (12.00-20.00); Blood Urea Nitrogen 26.4 mg/dL (9.0-27.0); Calcium 8.3 mg/dL (8.7-10.3); Carbon Dioxide 15.3 mmol/L (21.6-31.8); Chloride 110 mmol/L (96-109); Globulin 2.8 g/dL (1.6-3.3); Glucose 106 mg/dL (70-110); LDH >2500 U/L (120-246); Potassium 4.6 mmol/L (3.5-5.5); Sodium 142 mmol/L (135-145); Total Bilirubin 2.3 mg/dL (0.3-1.2); Total Protein 6.8 g/dL (6.2-8.2)
[2024-04-15] MEDS: HYDROcodone/APAP 7.5-325MG 1 EACH TAB PO PRN (14:44)
--- NOTE | 2024-04-15 14:51 | CT ---
EXAMINATION TYPE: CT brain wo con CT DLP: 1374 mGycm, Automated exposure control for dose reduction was used. DATE OF EXAM: 04/15/2024 2:42 PM COMPARISON: None. CLINICAL INDICATION: Male, 39 years old with history of AMS, AMS sickle cell crisis TECHNIQUE: Brain: Axial CT images of the brain were obtained with coronal and sagittal reformats created and rev iewed. Contrast used: None. Oral contrast used: None. FINDINGS: Brain: Extra-axial spaces: No abnormal extra-axial fluid collections. Ventricular system: Within normal limits Cerebral parenchyma: No acute intraparenchymal hemorrhage or mass effect. The dunbar-white junction is well differentiated. Cerebellum: Unremarkable. Mass effect: No evidence of midline shift. Intracranial vasculature: unremarkable Soft tissues: Normal. Calvarium/osseous structures: No depressed skull fracture. Paranasal sinuses and mastoid air cells: Mild scattered paranasal sinus disease. Visualized orbits: Orbital contents are intact. IMPRESSION: No acute intracranial process. [facility], , 04/15/2024 2:49 PM
--- NOTE | 2024-04-15 14:53 | P.CONS ---
History of Present Illness - Reason for Consult Consult date: 04/15/24 Sickle cell disease - Chief Complaint Confusion with pain crisis - History of Present Illness Mr. Thomas is a 39-year-old gentleman with a past medical history significant for Hb SS sickle cell disease who initially presented with sickle cell pain crisis. History could not be well obtained from Mr. Thomas at bedside and much of the history is obtained from official documentation and discussion with other healthcare providers. 1 week prior to admission, he had a URI and subsequently developed diffuse pain in the back, shoulders, and thighs which have been typical of prior pain crises. On admission, he was hemodynamically stable and afebrile. Labs at that time revealed hemoglobin 9.4, WBC 11.9 (ANC 8), lately to 349. Reticulocyte count was 10.5. LDH was 725 with total bilirubin of 1.4 with normal AST and ALT and creatinine at 1.13. Chest x-ray revealed no evidence of consolidation. 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 He was febrile on the evening of 04/14/2024 with Tmax of 100.7 F. He developed confusion with tachycardia with heart rates ranging in the 110s to 120s along with hypoxia at 78% on room air requiring 2 to 3 L of supplemental nasal cannula. Chest x-ray revealed no consolidation, but did show evidence of pulmonary vascular congestion. Hemoglobin on labs today was 6.4 with LDH 3559 and total bilirubin 2.8. AST and ALT were elevated at 264 and 69 with alkaline phosphatase of 324. Creatinine was elevated at 1.32. He is intermittently confused at bedside currently cannot fully participate in conversation. He was receiving 1 unit of packed red blood cells. Review of Systems ROS unobtainable: due to mental status Past Medical History Additional Past Medical History / Comment(s): sickle cell anemia History of Any Multi-Drug Resistant Organisms: None Reported Past Surgical History: Cholecystectomy Additional Past Surgical History / Comment(s): Mediport insertion x 3 Past Anesthesia/Blood Transfusion Reactions: No Reported Reaction Past Psychological History: No Psychological Hx Reported Smoking Status: Current every day smoker Past Alcohol Use History: None Reported Past Drug Use History: Marijuana Medications and Allergies Home Medications Medication Instructions Recorded Confirmed Type No Known Home Medications 04/13/24 04/13/24 History Allergies Allergy/AdvReac Type Severity Reaction Status Date / Time No Known Allergies Allergy Verified 04/13/24 10:24 Physical Exam Vitals: Vital Signs Temp Pulse Pulse Resp BP BP BP 04/15/24 14:00 98.2 F 141 H 16 164/87 04/15/24 13:18 99.3 F 112 H 22 154/98 04/15/24 13:04 99.0 F 105 H 22 154/98 04/15/24 13:03 99.6 F 117 H 22 162/92 04/15/24 12:48 98.3 F 125 H 22 153/101 04/15/24 08:00 122 H 16 04/15/24 07:36 98.7 F 122 H 16 150/92 04/15/24 01:47 99.1 F 141 H 22 141/82 04/14/24 20:00 100.7 F H 95 20 158/89 Pulse Ox 04/15/24 14:00 93 L 04/15/24 13:18 91 L 04/15/24 13:04 94 L 04/15/24 13:03 93 L 04/15/24 12:48 04/15/24 08:00 04/15/24 07:36 93 L 04/15/24 01:47 93 L 04/14/24 20:00 92 L Intake and Output 04/14/24 04/15/24 04/15/24 22:59 06:59 14:59 Intake Total 0 240 0 Output Total 400 Balance -400 240 0 Intake: Oral 0 240 Blood Product 0 Rc As-1 Unit 0 [id number] Output: Urine 400 Other: Voiding Method Urinal # Voids 3 - Constitutional Intermittently confused and not able to participate in conversation General appearance: thin - Cardiovascular Tachycardia Rhythm: regular - Gastrointestinal General gastrointestinal: soft Localized gastrointestinal: tender: diffuse - Integumentary Integumentary: no rash - Neurologic Confusion Results CBC & Chem 7: 04/15/24 10:34 04/15/24 10:34 Labs: Abnormal Lab Results - Last 24 Hours (Table) 04/13/24 04/13/24 04/14/24 Range/Units 12:04 12:46 07:00 WBC (4.50-10.00) X 10*3/uL RBC (4.40-5.60) X 10*6/uL Hgb (13.0-17.0) g/dL Hct (39.6-50.0) % MCV (80.0-97.0) FL RDW (11.5-14.5) % Immature Gran # (0.00-0.04) X 10*3/uL Neutrophils # (1.80-7.70) X 10*3/uL Neutrophils # (Manual) (1.3-7.7) k/uL Monocytes # (0.20-1.00) X 10*3/uL Monocytes # (Manual) (0-1.0) k/uL Eosinophils # (0.04-0.35) X 10*3/uL Metamyelocytes # (Man) (0) k/uL Nucleated RBCs (0-0) /100 WBC NRBC/100 WBC Diff (0.00-0.01) X 10*3/uL Anisocytosis (manual) Sickle Cells Target Cells [place] Bodies Retic Count (0.10-1.80) % Haptoglobin <10.0 L (31.2-198.0) mg/dL Chloride (96-109) mmol/L Carbon Dioxide (21.6-31.8) mmol/L Anion Gap (4.00-12.00) mmol/L BUN (9-20) mg/dL Creatinine (0.66-1.25) mg/dL BUN/Creatinine Ratio (12.00-20.00) Ratio Glucose (74-99) mg/dL Plasma Lactic Acid Víctor (0.7-2.0) mmol/L Calcium (8.7-10.3) mg/dL Ferritin 1225.0 H (22.0-322.0) ng/mL Total Bilirubin (0.3-1.2) mg/dL AST (14-35) U/L ALT (10-49) U/L Alkaline Phosphatase (41-126) U/L Lactate Dehydrogenase (120-246) U/L Albumin/Globulin Ratio (1.60-3.17) Ratio Crossmatch See Detail 04/14/24 04/15/24 04/15/24 Range/Units 23:44 03:56 03:56 WBC 14.39 H (4.50-10.00) X 10*3/uL RBC 2.32 L (4.40-5.60) X 10*6/uL Hgb 6.4 A* (13.0-17.0) g/dL Hct 18.1 A* (39.6-50.0) % MCV 78.0 L (80.0-97.0) FL RDW 23.6 H (11.5-14.5) % Immature Gran # 0.36 H (0.00-0.04) X 10*3/uL Neutrophils # 9.71 H (1.80-7.70) X 10*3/uL Neutrophils # (Manual) (1.3-7.7) k/uL Monocytes # 1.21 H (0.20-1.00) X 10*3/uL Monocytes # (Manual) (0-1.0) k/uL Eosinophils # 0 L (0.04-0.35) X 10*3/uL Metamyelocytes # (Man) (0) k/uL Nucleated RBCs (0-0) /100 WBC NRBC/100 WBC Diff 4.65 H (0.00-0.01) X 10*3/uL Anisocytosis (manual) 2+ A Sickle Cells 3+ A Target Cells 2+ A [place] Bodies 2+ A Retic Count 3.00 H (0.10-1.80) % Haptoglobin (31.2-198.0) mg/dL Chloride 110 H (96-109) mmol/L Carbon Dioxide 15.3 L (21.6-31.8) mmol/L Anion Gap 16.70 H (4.00-12.00) mmol/L BUN (9-20) mg/dL Creatinine (0.66-1.25) mg/dL BUN/Creatinine Ratio 20.31 H (12.00-20.00) Ratio Glucose (74-99) mg/dL Plasma Lactic Acid Víctor 3.1 H* (0.7-2.0) mmol/L Calcium 8.3 L (8.7-10.3) mg/dL Ferritin 3481.0 H (22.0-322.0) ng/mL Total Bilirubin 2.3 H (0.3-1.2) mg/dL AST 311 H (14-35) U/L ALT 72 H (10-49) U/L Alkaline Phosphatase 362 H (41-126) U/L Lactate Dehydrogenase >2500 H (120-246) U/L Albumin/Globulin Ratio 1.43 L (1.60-3.17) Ratio Crossmatch 04/15/24 04/15/24 04/15/24 Range/Units 03:56 07:35 10:34 WBC 14.8 H (4.50-10.00) X 10*3/uL RBC 2.46 L (4.40-5.60) X 10*6/uL Hgb 6.9 L* (13.0-17.0) g/dL Hct 20.9 L (39.6-50.0) % MCV (80.0-97.0) FL RDW 21.6 H (11.5-14.5) % Immature Gran # (0.00-0.04) X 10*3/uL Neutrophils # (1.80-7.70) X 10*3/uL Neutrophils # (Manual) 9.70 H (1.3-7.7) k/uL Monocytes # (0.20-1.00) X 10*3/uL Monocytes # (Manual) 1.04 H (0-1.0) k/uL Eosinophils # (0.04-0.35) X 10*3/uL Metamyelocytes # (Man) 0.15 H (0) k/uL Nucleated RBCs 24 H (0-0) /100 WBC NRBC/100 WBC Diff (0.00-0.01) X 10*3/uL Anisocytosis (manual) Sickle Cells Target Cells [place] Bodies Retic Count 10.4 H (0.10-1.80) % Haptoglobin (31.2-198.0) mg/dL Chloride (96-109) mmol/L Carbon Dioxide (21.6-31.8) mmol/L Anion Gap (4.00-12.00) mmol/L BUN (9-20) mg/dL Creatinine (0.66-1.25) mg/dL BUN/Creatinine Ratio (12.00-20.00) Ratio Glucose (74-99) mg/dL Plasma Lactic Acid Víctor 2.6 H* 2.1 H* (0.7-2.0) mmol/L Calcium (8.7-10.3) mg/dL Ferritin (22.0-322.0) ng/mL Total Bilirubin (0.3-1.2) mg/dL AST (14-35) U/L ALT (10-49) U/L Alkaline Phosphatase (41-126) U/L Lactate Dehydrogenase (120-246) U/L Albumin/Globulin Ratio (1.60-3.17) Ratio Crossmatch 04/15/24 04/15/24 Range/Units 10:34 10:34 WBC (4.50-10.00) X 10*3/uL RBC (4.40-5.60) X 10*6/uL Hgb (13.0-17.0) g/dL Hct (39.6-50.0) % MCV (80.0-97.0) FL RDW (11.5-14.5) % Immature Gran # (0.00-0.04) X 10*3/uL Neutrophils # (1.80-7.70) X 10*3/uL Neutrophils # (Manual) (1.3-7.7) k/uL Monocytes # (0.20-1.00) X 10*3/uL Monocytes # (Manual) (0-1.0) k/uL Eosinophils # (0.04-0.35) X 10*3/uL Metamyelocytes # (Man) (0) k/uL Nucleated RBCs (0-0) /100 WBC NRBC/100 WBC Diff (0.00-0.01) X 10*3/uL Anisocytosis (manual) Sickle Cells Target Cells [place] Bodies Retic Count (0.10-1.80) % Haptoglobin (31.2-198.0) mg/dL Chloride 114 H (96-109) mmol/L Carbon Dioxide 17 L (21.6-31.8) mmol/L Anion Gap (4.00-12.00) mmol/L BUN 31 H (9-20) mg/dL Creatinine 1.32 H (0.66-1.25) mg/dL BUN/Creatinine Ratio (12.00-20.00) Ratio Glucose 108 H (74-99) mg/dL Plasma Lactic Acid Víctor 2.3 H* (0.7-2.0) mmol/L Calcium (8.7-10.3) mg/dL Ferritin (22.0-322.0) ng/mL Total Bilirubin 2.8 H (0.3-1.2) mg/dL AST 264 H (14-35) U/L ALT 69 H (10-49) U/L Alkaline Phosphatase 324 H (41-126) U/L Lactate Dehydrogenase 3559 H (120-246) U/L Albumin/Globulin Ratio (1.60-3.17) Ratio Crossmatch Microbiology - Last 24 Hours (Table) 04/13/24 12:04 Blood Culture - Preliminary Blood Assessment and Plan (1) Sickle cell hemolytic anemia Current Visit: Yes Status: Acute Code(s): D57.1 - SICKLE-CELL DISEASE WITHOUT CRISIS SNOMED Code(s): 414606842 (2) Acute stroke due to sickle-cell disease Current Visit: Yes Status: Suspected Code(s): I63.9 - CEREBRAL INFARCTION, UNSPECIFIED; D57.1 - SICKLE-CELL DISEASE WITHOUT CRISIS SNOMED Code(s): 549351012 Plan: #Acute metabolic encephalopathy possibly due to CVA from sickle cell disease -Developed on the evening of 04/14/2024 with fever -Subsequently, has developed tachycardia and acute hypoxia requiring 2 to 3 L supplemental nasal cannula -Clinically, he is not able to fully participate in conversation -Given his history, I am concerned for possible CVA from sickle cell disease -CERTIFIED RETINAL ANGIOGRAPHER imaging has been ordered by the primary team -Case discussed with nursing and primary team. I do recommend transfer to tertiary facility in the event he needs exchange transfusion. He does have a port in place for this and likely has received exchange transfusions in the past to help prevent vaso-occlusive crises #Sickle cell hemolytic anemia -Hemoglobin today 6.4 from 9.4 on admission with elevated total bilirubin at 2.8 and lactate dehydrogenase at 3559 -He does have evidence of endorgan dysfunction with elevated LFTs, creatinine, pulmonary edema on chest x-ray, tachycardia, and hypoxia -He does have abdominal pain on exam -Abdominal ultrasound revealed hepatomegaly, but was not able to visualize the spleen -He is hemodynamically stable, which makes splenic sequestration less likely -I am concerned he is having possible hyper hemolytic crisis -Agree with simple exchange transfusion with 1 unit of packed red blood cells currently being transfused -IVIG 0.4 g/kg daily for 5 days as well as methylprednisolone 500 mg IV daily for 2 days have been ordered -Continue to obtain reticulocyte count, haptoglobin, LDH, and CMP daily Sheng Gerard MD
--- NOTE | 2024-04-15 15:33 | CA ---
Transthoracic Echo Report Name: Shane Thomas Age: 39 Gender: M : 1985 Exam Date: 04/15/2024 13:39 Exam Location: [place] [facility] Ht (in): 72 Wt (lb): 155 Ordering Physician: Roel Gamboa MD Attending/Referring Phys: Transitional Nurse Danni Majano RDCS Procedure CPT: Indications: SCD vasoocclusion Cardiac Hx: Technical Quality: Contrast 1: Total Dose (mL): Contrast 2: Total Dose (mL): MEASUREMENTS (Male / Female) Normal Values 2D ECHO LV Diastolic Diameter PLAX 4.3 cm 4.2 - 5.9 / 3.9 - 5.3 cm LV Systolic Diameter PLAX 3.5 cm IVS Diastolic Thickness 1.4 cm 0.6 - 1.0 / 0.6 - 0.9 cm LVPW Diastolic Thickness 1.4 cm 0.6 - 1.0 / 0.6 - 0.9 cm LV Relative Wall Thickness 0.6 RV Internal Dim ED PLAX 4.3 cm LVOT Diameter 2.0 cm LA Systolic Diameter LX 3.4 cm 3.0 - 4.0 / 2.7 - 3.8 cm LV Diastolic Volume MOD BP 79.6 cm??? 67 - 155 / 56 - 104 cm??? LV Systolic Volume MOD BP 31.3 cm??? - 58 / 19 - 49 cm??? LV Ejection Fraction MOD BP 60.6 % >= 55 % LV Cardiac Index MOD BP 3380.9 cm???/min???m??? LV Diastolic Volume MOD 4C 54.4 cm??? LV Systolic Volume MOD 4C 17.9 cm??? LV Ejection Fraction MOD 4C 67.2 % LV Cardiac Index MOD 4C 2559.9 cm???/min???m??? LV Diastolic Length 4C 8.5 cm LV Systolic Length 4C 6.1 cm LV Diastolic Volume MOD 2C 104.6 cm??? LV Systolic Volume MOD 2C 52.3 cm??? LV Ejection Fraction MOD 2C 50.0 % LV Cardiac Index MOD 2C 3660.2 cm???/min???m??? LV Diastolic Length 2C 7.5 cm LV Systolic Length 2C 5.7 cm LA Volume 56.3 cm??? 18 - 58 / 22 - 52 cm??? LA Volume Index 29.9 cm???/m??? 16 - 28 cm???/m??? M-MODE Aortic Root Diameter MM 2.9 cm LA Systolic Diameter MM 3.1 cm LA Ao Ratio MM 1.1 AV Cusp Separation MM 2.5 cm DOPPLER AV Peak Velocity 176.9 cm/s AV Peak Gradient 12.5 mmHg TR Peak Velocity 295.1 cm/s TR Peak Gradient 34.8 mmHg Right Ventricular Systolic Press 52.0 mmHg FINDINGS Left Ventricle Left ventricular ejection fraction is estimated at 55-60 %. Left ventricular cavity size normal. Mildly increased septal wall thickness. Normal left ventricular wall motion. Right Ventricle Severe right ventricular dilatation. Moderate pulmonary hypertension. Right ventricular systolic pressure estimated at 52 mm hg. Right Atrium Severe right atrial dilatation. No right atrial thrombus or mass seen. Left Atrium Mildly increased left atrial volume. Mildly increased left atrial area. No left atrial thrombus or mass present. Mitral Valve Structurally normal mitral valve. No evidence for mitral valve prolapse. No mitral stenosis. Mild mitral regurgitation. Aortic Valve Trileaflet aortic valve. No aortic valve stenosis or regurgitation. Tricuspid Valve Structurally normal tricuspid valve. [id number] tricuspid regurgitation. Pulmonic Valve Structurally normal pulmonic valve. No pulmonic regurgitation. Pericardium No pericardial or pleural effusion. Aorta Normal size aortic root and proximal ascending aorta. CONCLUSIONS Mild to moderate increased left ventricle thickness Left ventricular ejection fraction 55-60% Severe right ventricular dilation with RVSP 52 Mildly dilated left atrium Mild mitral regurgitation Moderate to severe tricuspid regurgitation No pericardial effusion Previewed by: Dr. Solomon Powell DO (Electronically Signed) Final Date: 15 April 2024 15:32
[2024-04-15] MEDS ORDERED: IMMUNE GLOBULIN (GAMMAGARD) 5 GM in EMPTY BAG 1 BAG IV ONE (16:00)
[2024-04-15] MEDS: PANTOPRAZOLE 40 MG/10 ML VIAL IVP SCH (16:26)
[2024-04-15] MEDS: methylPREDNISolone SOD SUCCIN 500 MG in SODIUM CHLORIDE 0.9% 100 ML IVPB SCH (16:27)
[2024-04-15] MEDS: HYDROmorphone 2 MG TAB PO SCH (17:30)
[2024-04-15 18:16] VITALS: TEMP 98.3
--- NOTE | 2024-04-15 18:25 | P.PN ---
Subjective Progress Note Date: 04/15/24 History of present illness; Shane Thomas is a 39-year-old male with sickle cell disease, who presents with pain crisis. Patient symptoms began this morning, with pain is constant in nature and located primarily in diffusely through back, shoulders, and thighs. He states he has pain throughout his body. He reports having a cold 1 week ago, with no other known triggers. He has had multiple pain crisis in the past. He has urinated since arriving to ER today. Currently he denies fever, chills, chest pain, shortness of breath, cough, nausea, vomiting, abdominal pain. Initial lab work done in the ER showed WBC 11.9, hemoglobin 9.4, MCV 87, slide with sickle cells, target cells, [place] bodies, reticulocyte count 10.5, sodium 142, potassium 4.1, chloride 112, BUN 12, creatinine 13, glucose 113, bilirubin 1.4, ALP 146, lactate dehydrogenase 725, respiratory viral panel negative. EKG done in the ER independently interpreted showed heart rate of 55, no ST segment elevation or depression seen, no T-wave inversions seen. Chest x-ray done independently interpreted in the ER showed no acute cardiopulmonary process. Progress note 04/15/2024 patient seen and examined at bedside. 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 Patient is beginning to display worsening mentation. Patient continues to have throughout his body, not worse in any one area. Area includes chest, abdomen, shoulders, back, and legs. Patient continues to get combination of Dilaudid and Harold. Case discussed with hematology oncology who agreed to transfer for higher level of care was necessary for exchange transfusion. REVIEW OF SYSTEMS: All Systems reviewed, pertinent positives and negatives noted in HPI. All other symptoms are negative. The rest of the 14-point review of systems is negative. PHYSICAL EXAMINATION: Vitals reviewed GENERAL: The patient is alert and oriented x2, moderate acute distress. Well developed, well nourished. HEENT: Pupils are round and equally reacting to light. EOMI. No scleral icterus. No conjunctival pallor. Normocephalic, atraumatic. No pharyngeal erythema. No thyromegaly. CARDIOVASCULAR: S1 and S2 present. No murmurs, rubs, or gallops. PULMONARY: Chest is clear to auscultation, no wheezing or crackles. ABDOMEN: Soft, mildly tender throughout, nondistended, normoactive bowel sounds. No palpable organomegaly. MUSCULOSKELETAL: No apparent joint swelling and deformities. EXTREMITIES: No apparent cyanosis, clubbing, or pedal edema. NEUROLOGICAL: Gross neurological examination did not reveal any focal deficits. SKIN: No apparent rashes. Labs reviewed today WBC 14.8, hemoglobin 6.9, hematocrit 20.9, platelets 190, retic count 3.0, sodium 140, potassium 4.4, chloride 114, bicarb 17, anion gap 9, BUN 31, creatinine 1.32, ferritin 3481, bilirubin 2.8, AST 264, ALT 69, alkaline phosphatase 324, lactate dehydrogenase 3559. Imaging reviewed today chest x-ray increased volume overload. Echocardiogram with mild to moderate increased left ventricular thickness, LVEF 55 to 60%, severe right ventricular dilation with RVSP 52, moderate to severe tricuspid regurgitation. Brain CT with no acute intracranial process. Assessment and plan Shane Thomas is a 39-year-old male with sickle cell disease, who presents with pain crisis. 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) # Acute Encephalopathy Given 500 mL NS bolus in ER Continue IV normal saline 100 cc/h Continue pain management with IV Dilaudid 0.5 mg every 3 hours as needed, 1 mg IV every 3 hours as needed, oral Harold 7.5 every 4 hours scheduled, monitor for sedation Discontinued Dilaudid SODA WORKER Began senna 8.6 mg twice daily 1 unit packed red blood cells blood transfusion completed Monitor CBC, CMP, LDH, Haptoglobin, Ferritin, Retic Count Daily Ferritin 3041 Hematology consulted for exchange transfusion, agrees with recommendation and suggest transfer for higher level of care -empirically initiated zosyn in case of Acute Chest Syndrome -Case discussed with [facility], patient accepted for transfer to MICU, attending: Dr. Brandyn Hannah #Leukocytosis Likely secondary to stress response versus underlying infection Initial WBC 11.9 => 12.3 => 14.8 blood culturepreliminary no growth Monitor CBC as above #Acute urinary retention Bladder scan revealed 600 mL Patient later able to initiate urination UA no apparent UTI Continue to monitor Continue IV fluids F: IV Normal saline 100cc/hr E: Replete as needed N: Regular diet E: None DVT ppx: Subq Lovenox Code status: Full code Anticipated discharge place: Transfer to [facility] Anticipated discharge time: Today or tomorrow Monitor vital signs, CBC, CMP Continue telemetry monitoring Continue with symptomatic treatment. Further recommendations as per clinical course of the patient Dictation was produced using [employer] dictation software. Please excuse any grammatical, word or spelling errors. I have seen and evaluated the patient today. Discussed with the resident and agree with the residents finding and plan as documented in the resident's note. Changes highlighted in blue font. Objective - Vital Signs Vital signs: Vital Signs Temp 99.1 F 04/15/24 16:10 Pulse 119 H 04/15/24 16:10 Resp 22 04/15/24 16:10 BP 143/83 04/15/24 16:10 Pulse Ox 93 L 04/15/24 14:00 FiO2 Intake & Output 04/14/24 04/15/24 04/15/24 18:59 06:59 18:59 Intake Total 118 240 310 Output Total 400 Balance -282 240 310 Intake: Oral 118 240 Blood Product 310 Rc As-1 Unit 310 [id number] Output: Urine 400 Other: Voiding Method Urinal # Voids 300 3 2 - Labs CBC & Chem 7: 04/15/24 10:34 04/15/24 10:34 Labs: Abnormal Lab Results - Last 24 Hours (Table) 04/13/24 04/14/24 04/14/24 Range/Units 12:46 07:00 23:44 WBC (4.50-10.00) X 10*3/uL RBC (4.40-5.60) X 10*6/uL Hgb (13.0-17.0) g/dL Hct (39.6-50.0) % MCV (80.0-97.0) FL RDW (11.5-14.5) % Immature Gran # (0.00-0.04) X 10*3/uL Neutrophils # (1.80-7.70) X 10*3/uL Neutrophils # (Manual) (1.3-7.7) k/uL Monocytes # (0.20-1.00) X 10*3/uL Monocytes # (Manual) (0-1.0) k/uL Eosinophils # (0.04-0.35) X 10*3/uL Metamyelocytes # (Man) (0) k/uL Nucleated RBCs (0-0) /100 WBC NRBC/100 WBC Diff (0.00-0.01) X 10*3/uL Anisocytosis (manual) Sickle Cells Target Cells [place] Bodies Retic Count (0.10-1.80) % Chloride (96-109) mmol/L Carbon Dioxide (21.6-31.8) mmol/L Anion Gap (4.00-12.00) mmol/L BUN (9-20) mg/dL Creatinine (0.66-1.25) mg/dL BUN/Creatinine Ratio (12.00-20.00) Ratio Glucose (74-99) mg/dL Plasma Lactic Acid Víctor 3.1 H* (0.7-2.0) mmol/L Calcium (8.7-10.3) mg/dL Ferritin 1225.0 H (22.0-322.0) ng/mL Total Bilirubin (0.3-1.2) mg/dL AST (14-35) U/L ALT (10-49) U/L Alkaline Phosphatase (41-126) U/L Lactate Dehydrogenase (120-246) U/L Albumin/Globulin Ratio (1.60-3.17) Ratio Crossmatch See Detail 04/15/24 04/15/24 04/15/24 Range/Units 03:56 03:56 03:56 WBC 14.39 H (4.50-10.00) X 10*3/uL RBC 2.32 L (4.40-5.60) X 10*6/uL Hgb 6.4 A* (13.0-17.0) g/dL Hct 18.1 A* (39.6-50.0) % MCV 78.0 L (80.0-97.0) FL RDW 23.6 H (11.5-14.5) % Immature Gran # 0.36 H (0.00-0.04) X 10*3/uL Neutrophils # 9.71 H (1.80-7.70) X 10*3/uL Neutrophils # (Manual) (1.3-7.7) k/uL Monocytes # 1.21 H (0.20-1.00) X 10*3/uL Monocytes # (Manual) (0-1.0) k/uL Eosinophils # 0 L (0.04-0.35) X 10*3/uL Metamyelocytes # (Man) (0) k/uL Nucleated RBCs (0-0) /100 WBC NRBC/100 WBC Diff 4.65 H (0.00-0.01) X 10*3/uL Anisocytosis (manual) 2+ A Sickle Cells 3+ A Target Cells 2+ A [place] Bodies 2+ A Retic Count 3.00 H (0.10-1.80) % Chloride 110 H (96-109) mmol/L Carbon Dioxide 15.3 L (21.6-31.8) mmol/L Anion Gap 16.70 H (4.00-12.00) mmol/L BUN (9-20) mg/dL Creatinine (0.66-1.25) mg/dL BUN/Creatinine Ratio 20.31 H (12.00-20.00) Ratio Glucose (74-99) mg/dL Plasma Lactic Acid Víctor 2.6 H* (0.7-2.0) mmol/L Calcium 8.3 L (8.7-10.3) mg/dL Ferritin 3481.0 H (22.0-322.0) ng/mL Total Bilirubin 2.3 H (0.3-1.2) mg/dL AST 311 H (14-35) U/L ALT 72 H (10-49) U/L Alkaline Phosphatase 362 H (41-126) U/L Lactate Dehydrogenase >2500 H (120-246) U/L Albumin/Globulin Ratio 1.43 L (1.60-3.17) Ratio Crossmatch 04/15/24 04/15/24 04/15/24 Range/Units 07:35 10:34 10:34 WBC 14.8 H (4.50-10.00) X 10*3/uL RBC 2.46 L (4.40-5.60) X 10*6/uL Hgb 6.9 L* (13.0-17.0) g/dL Hct 20.9 L (39.6-50.0) % MCV (80.0-97.0) FL RDW 21.6 H (11.5-14.5) % Immature Gran # (0.00-0.04) X 10*3/uL Neutrophils # (1.80-7.70) X 10*3/uL Neutrophils # (Manual) 9.70 H (1.3-7.7) k/uL Monocytes # (0.20-1.00) X 10*3/uL Monocytes # (Manual) 1.04 H (0-1.0) k/uL Eosinophils # (0.04-0.35) X 10*3/uL Metamyelocytes # (Man) 0.15 H (0) k/uL Nucleated RBCs 24 H (0-0) /100 WBC NRBC/100 WBC Diff (0.00-0.01) X 10*3/uL Anisocytosis (manual) Sickle Cells Target Cells [place]Cash Bodies Retic Count 10.4 H (0.10-1.80) % Chloride 114 H (96-109) mmol/L Carbon Dioxide 17 L (21.6-31.8) mmol/L Anion Gap (4.00-12.00) mmol/L BUN 31 H (9-20) mg/dL Creatinine 1.32 H (0.66-1.25) mg/dL BUN/Creatinine Ratio (12.00-20.00) Ratio Glucose 108 H (74-99) mg/dL Plasma Lactic Acid Víctor 2.1 H* (0.7-2.0) mmol/L Calcium (8.7-10.3) mg/dL Ferritin (22.0-322.0) ng/mL Total Bilirubin 2.8 H (0.3-1.2) mg/dL AST 264 H (14-35) U/L ALT 69 H (10-49) U/L Alkaline Phosphatase 324 H (41-126) U/L Lactate Dehydrogenase 3559 H (120-246) U/L Albumin/Globulin Ratio (1.60-3.17) Ratio Crossmatch 04/15/24 Range/Units 10:34 WBC (4.50-10.00) X 10*3/uL RBC (4.40-5.60) X 10*6/uL Hgb (13.0-17.0) g/dL Hct (39.6-50.0) % MCV (80.0-97.0) FL RDW (11.5-14.5) % Immature Gran # (0.00-0.04) X 10*3/uL Neutrophils # (1.80-7.70) X 10*3/uL Neutrophils # (Manual) (1.3-7.7) k/uL Monocytes # (0.20-1.00) X 10*3/uL Monocytes # (Manual) (0-1.0) k/uL Eosinophils # (0.04-0.35) X 10*3/uL Metamyelocytes # (Man) (0) k/uL Nucleated RBCs (0-0) /100 WBC NRBC/100 WBC Diff (0.00-0.01) X 10*3/uL Anisocytosis (manual) Sickle Cells Target Cells Foote-Cash Bodies Retic Count (0.10-1.80) % Chloride (96-109) mmol/L Carbon Dioxide (21.6-31.8) mmol/L Anion Gap (4.00-12.00) mmol/L BUN (9-20) mg/dL Creatinine (0.66-1.25) mg/dL BUN/Creatinine Ratio (12.00-20.00) Ratio Glucose (74-99) mg/dL Plasma Lactic Acid Víctor 2.3 H* (0.7-2.0) mmol/L Calcium (8.7-10.3) mg/dL Ferritin (22.0-322.0) ng/mL Total Bilirubin (0.3-1.2) mg/dL AST (14-35) U/L ALT (10-49) U/L Alkaline Phosphatase (41-126) U/L Lactate Dehydrogenase (120-246) U/L Albumin/Globulin Ratio (1.60-3.17) Ratio Crossmatch Microbiology - Last 24 Hours (Table) 04/13/24 12:04 Blood Culture - Preliminary Blood
[2024-04-15] MEDS: IMMUNE GLOBULIN (GAMMAGARD) 20 GM in EMPTY BAG 1 BAG IV ONE (18:51)
[2024-04-15] MEDS: PIPERACILLIN-TAZOBACTAM 3.375 GM in SODIUM CHLORIDE 0.9% 100 ML IVPB SCH (20:39)
[2024-04-15 22:16] VITALS: BP 154/93; PULSE 122; RESP 19
[2024-04-15] MEDS: methylPREDNISolone SOD SUCCI 125 MG/2 ML VIAL IV SCH (22:54)
--- NOTE | 2024-04-16 07:34 | P.DS ---
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 Initial lab work done in the ER showed WBC 11.9, hemoglobin 9.4, MCV 87, slide with sickle cells, target cells, [place] bodies, reticulocyte count 10.5, sodium 142, potassium 4.1, chloride 112, BUN 12, creatinine 13, glucose 113, bilirubin 1.4, ALP 146, lactate dehydrogenase 725, respiratory viral panel negative. EKG done in the ER independently interpreted showed heart rate of 55, no ST segment elevation or depression seen, no T-wave inversions seen. Chest x-ray done independently interpreted in the ER showed no acute cardiopulmonary process. Patient was initially treated with hydration and opiates for vaso-occlusive crisis, but displayed evidence of worsening hemolysis associated with symptoms of increased hypoxic respiratory failure as well as altered mental status concerning for complications of sickle cell disease including possibilities of stroke and/or acute chest syndrome. Case was discussed with hematology who recommended transfer for possibility of exchange transfusion. This case was subsequently discussed with [facility] who accepted the patient for transfer. Patient Condition at Discharge: Good Plan - Discharge Summary Discharge Rx Participant: Yes New Discharge Prescriptions: No Action No Known Home Medications Discharge Medication List No Known Home Medications 04/13/24 [History] Follow up Appointment(s)/Referral(s): None,Stated [Primary Care Provider] - 1-2 days Discharge Disposition: OTHER INSTITUTION NOT DEFINED
[2024-04-16 13:08] LABS: Complement C3 98.6 mg/dL (80.0-207.0)
[2024-04-16] MEDS ORDERED: IMMUNE GLOBULIN (GAMMAGARD) 5 GM in EMPTY BAG 1 BAG IV ONE (16:00)
[2024-04-16] MEDS ORDERED: IMMUNE GLOBULIN (GAMMAGARD) 20 GM in EMPTY BAG 1 BAG IV ONE (16:00)
[2024-04-17] MEDS ORDERED: IMMUNE GLOBULIN (GAMMAGARD) 5 GM in EMPTY BAG 1 BAG IV ONE (16:00)
[2024-04-17] MEDS ORDERED: IMMUNE GLOBULIN (GAMMAGARD) 20 GM in EMPTY BAG 1 BAG IV ONE (16:00)
[2024-04-18] MEDS ORDERED: IMMUNE GLOBULIN (GAMMAGARD) 20 GM in EMPTY BAG 1 BAG IV ONE (16:00)
[2024-04-18] MEDS ORDERED: IMMUNE GLOBULIN (GAMMAGARD) 5 GM in EMPTY BAG 1 BAG IV ONE (16:00)
[2024-04-19] MEDS ORDERED: IMMUNE GLOBULIN (GAMMAGARD) 20 GM in EMPTY BAG 1 BAG IV ONE (16:00)
[2024-04-19] MEDS ORDERED: IMMUNE GLOBULIN (GAMMAGARD) 5 GM in EMPTY BAG 1 BAG IV ONE (16:00)
== END 2024-04-16 00:15 | DRG 662 ==
LOC: EC 08:15 → 4SSUR 11:40 → 1SOBS 14:18 → 6NMEDSUR 17:54
PROVIDERS: ADMIT Student in an Organized Health Care Education/Training Program; ATTEND Student in an Organized Health Care Education/Training Program
PROC: 30233N1 Transfusion of Nonautologous Red Blood Cells into Peripheral Vein, Percutaneous Approach (ICD-10-PCS; principal; 2024-04-13)
DX: D57.03 Hb-SS disease with cerebral vascular involvement (principal); D72.829 Elevated white blood cell count, unspecified; F17.200 Nicotine dependence, unspecified, uncomplicated; G93.40 Encephalopathy, unspecified; J96.01 Acute respiratory failure with hypoxia; R32 Unspecified urinary incontinence; R00.0 Tachycardia, unspecified; R33.9 Retention of urine, unspecified; Z28.21 Immunization not carried out because of patient refusal; Z28.310 Unvaccinated for COVID-19
CPT/HCPCS: 36415; 70450; 71045; 71046; 76700; 80053; 81001; 82140; 82728; 83010; 83021; 83605; 83615; 84146; 85025; 85045; 86160; 86850; 86880; 86900; 86901; 86920; 87040; 87636; 93005; 93306; 96361; 96374; 96375; 96376; 99285